=== PATIENT | female | born 1940 | race Caucasian/White ===

== ENCOUNTER 2018-02-18 21:42 | Inpatient (IN) | payer OTHER ==
[~2018-02-18] VITALS: Ht 160 cm; Wt 56.7 kg
[2018-02-18] MEDS ORDERED: LOSARTAN-HCTZ1 EAC1 (21:57)
[2018-02-18] MEDS ORDERED: SYNTHROID75 MCG (21:57)
[2018-02-18] MEDS ORDERED: DOXAZOSIN MESYLA2 MG (21:57)
[2018-02-18] MEDS ORDERED: GLIPIZIDE5 MG (21:57)
[2018-02-18] MEDS ORDERED: LYRICA50 MG (21:58)
[2018-02-18] MEDS ORDERED: VITAMIN D310000 UNIT (21:58)
[2018-02-18] MEDS ORDERED: DONEPEZIL HCL10 MG (21:58)
[2018-02-24] MEDS ORDERED: VENTOLIN HFA18 GM IH (16:01)
[2018-02-24] MEDS ORDERED: LEVAQUIN750 MG PO (16:01)
[2018-02-24] MEDS ORDERED: TUSSI-PRES LIQ118 ML PO (16:10)
== END 2018-02-24 16:45 | disposition home or self-care (01) | DRG 195 ==
LOC: ER 21:42 → SEC-K 02-19 16:06 → MEDJ 02-19 16:06
PROC: 3E0F7GC Introduction of Other Therapeutic Substance into Respiratory Tract, Via Natural or Artificial Opening (ICD-10-PCS; principal; 2018-02-19)
PROC: BW24ZZZ Computerized Tomography (CT Scan) of Chest and Abdomen (ICD-10-PCS; 2018-02-19)
PROC: 4A033R1 Measurement of Arterial Saturation, Peripheral, Percutaneous Approach (ICD-10-PCS; 2018-02-24)
DX: J10.1 Influenza due to other identified influenza virus with other respiratory manifestations (principal); J20.9 Acute bronchitis, unspecified; R09.02 Hypoxemia; E11.65 Type 2 diabetes mellitus with hyperglycemia; E03.8 Other specified hypothyroidism; I10 Essential (primary) hypertension